=== PATIENT | female | born 1940 | race Caucasian/White ===

== ENCOUNTER 2016-07-11 07:19 | Inpatient (IN) | payer MEDICARE ==
[~2016-07-11 07:19] MED LIST: CLINDAMYCIN 600 MG PREMIX 50 ML IV SCH
[2016-08-29] MEDS ORDERED: CLINDAMYCIN 600 MG PREMIX 50 ML IV PRN (11:00)
[2016-08-29] MEDS ORDERED: LACTATED RINGERS 1,000 ML ONE ×3 (11:27→20:04)
[2016-08-29] MEDS ORDERED: IV START KIT ONE (11:28)
[2016-08-29] MEDS ORDERED: CLINDAMYCIN 600 MG PREMIX 50 ML IV ONE (11:36)
[2016-08-29] MEDS ORDERED: NERVE BLOCK PROCEDURAL TRAY 1 EACH ONE (13:10)
[2016-08-29] MEDS ORDERED: ROPIVACAINE 0.5% 30 ML VIAL ONE (13:10)
[2016-08-29] MEDS ORDERED: FENTANYL 100 MCG/2 ML VIAL ONE ×2 (13:15→20:29)
[2016-08-29] MEDS ORDERED: MIDAZOLAM HCL 1 MG/ML 2ML VIAL ONE (13:15)
[2016-08-29] MEDS ORDERED: EPINEPHRINE 1 MG/ML 1ML AMP ONE (13:29)
[2016-08-29] MEDS ORDERED: SODIUM CHLORIDE 0.9% 100 ML ONE (13:29)
[2016-08-29] MEDS ORDERED: METHYLENE BLUE 1% 1ML VIAL ONE (13:29)
[2016-08-29] MEDS ORDERED: HEPARIN SODIUM ONE (13:45)
[2016-08-29] MEDS ORDERED: PROPOFOL 20 ML IV ONE (14:51)
[2016-08-29] MEDS ORDERED: LIDOCAINE 2% (PRES FREE) 5 ML VIAL ONE (14:51)
[2016-08-29] MEDS ORDERED: ROCURONIUM BROMIDE 10 MG/ML DOSE IV ONE (14:51)
[2016-08-29] MEDS ORDERED: LUBRICANT EYE OINTMENT (PF) 10 APPLIC TUBE ONE (14:57)
[2016-08-29] MEDS ORDERED: ONDANSETRON 4 MG/2ML 2 ML VIAL IV PRN (16:25)
[2016-08-29] MEDS ORDERED: HYDROMORPHONE HCL 1 MG/ML SYRINGE IV PRN (16:25)
[2016-08-29] MEDS ORDERED: MEPERIDINE 25 MG/ML SYRINGE IV PRN (16:25)
[2016-08-29] MEDS ORDERED: PROMETHAZINE HCL 25 MG/ML VIAL IM PRN (16:25)
[2016-08-29] MEDS ORDERED: LABETALOL HCL 5 MG/ML 20ML VIAL IV PRN (16:25)
[2016-08-29] MEDS ORDERED: ATROPINE SULFATE 0.4 MG/1 ML VIAL IV PRN (16:25)
[2016-08-29] MEDS ORDERED: NALOXONE HCL 0.4 MG/ML VIAL IV PRN (16:25)
[2016-08-29] MEDS ORDERED: HYDRALAZINE HCL 20 MG/1 ML VIAL IV PRN (16:25)
[2016-08-29] MEDS ORDERED: FENTANYL 100 MCG/2 ML VIAL IV PRN (16:25)
[2016-08-29] MEDS ORDERED: LACTATED RINGERS 1,000 ML IV SCH (16:30)
[2016-08-29] MEDS ORDERED: METOPROLOL TARTRATE 1 MG/ML 5ML VIAL ONE (16:54)
--- NOTE | 2016-08-29 18:52 | RAD ---
Name: LEXI NICHOLE STONE Exam: C-arm fluoroscopy Comparison: Presurgical exam dated 04/17/2016 Clinical history: Preoperative exam Findings: 13.3 seconds of fluoroscopy was utilized for the procedure. 2 C-arm spot images are submitted. Both of views are AP views with normal projectional appearance of the left shoulder arthroplasty. Suspicious foreign body is not appreciated. Impression: Normal intraoperative appearance left shoulder arthroplasty. Please see operative report for further information.
--- NOTE | 2016-08-29 19:24 | PCMBPN ---
Brief Post Op Note: Date of Procedure: 08/29/16 Preoperative Diagnosis: 1. left shoulder osteoarthritis Postoperative Diagnosis: 1. left shoulder osteoarthritis, biceps tendonitis, and rotator cuff tear Procedure: left reverse shoulder arthroplasty and biceps tenodesis Surgeon: Camron Jones MD Assist: Nicanor JACKSON Anesthesia: GETA, left intrascalene nerve block and catheter for post-op pain control Findings: pt had an insufficient supra and subscapularis. Elected to placed a DJO RSA with a 32-4 glenosphere (scews 30 x 3 and 18mm), cemented size 6 humeral stem with a neutral liner Condition: extubated stable vitals, transferred to pacu Complications: None IV Fluids: 2700 mLs of LR Urine Output: 200 mLs Estimated Blood Loss: 200 mLs Tourniquet Time: [N/A] Specimens: [N/A] Implants: see above Drains: [N/A] PLAN: NWB on the LUE. SLing at all times. Clinda x 24 hours post-op. Oxycodone for pain control post-op.
[2016-08-29] MEDS ORDERED: ON-Q PUMP/ROPIVACAINE 0.2% 450 ML ONE (19:57)
[2016-08-29] MEDS: ON-Q PUMP/ROPIVACAINE 0.2% 450 ML in PREMIX BAG 1 EACH NB PRN (20:20)
--- NOTE | 2016-08-29 20:37 | RAD ---
Name: LEXI BRO Exam: Left facial Comparison: Multiple priors Clinical history: Postoperative exam Findings: 2 views of the left shoulder submitted. There are features of recent left glenohumeral arthroplasty. There is no fracture or dislocation. There is no suspicious foreign body. Visualized left lung is clear. Impression: Normal postop appearance left shoulder arthroplasty. Please see operative report for further information.
[2016-08-29] MEDS ORDERED: TRAMADOL HCL 50 MG TABLET PO PRN (20:54)
[2016-08-29] MEDS ORDERED: DIPHENHYDRAMINE HCL 50 MG/1 ML VIAL IV PRN (20:54)
[2016-08-29] MEDS ORDERED: MORPHINE SULFATE 4 MG/ML SYRINGE ONE (21:35)
[2016-08-29] MEDS: MORPHINE SULFATE 2 MG/ML SYRINGE IV PRN (21:37)
[2016-08-29] MEDS ORDERED: MORPHINE SULFATE 4 MG/ML SYRINGE IV PRN (21:41)
[2016-08-29] MEDS ORDERED: PUMP TUBING ONE (22:59)
[2016-08-29] MEDS: LACTATED RINGERS 1,000 ML IV SCH (23:05)
[2016-08-29] MEDS: DOCUSATE SODIUM 100 MG CAPSULE PO SCH (23:06)
[2016-08-29] MEDS ORDERED: INSULIN ASPART (DOSE) 100 UNITS/1 ML SUB-Q PRN (23:24)
[2016-08-29 23:25] VITALS: BMI 46.4
[2016-08-29] MEDS: CLINDAMYCIN 600 MG PREMIX 600 MG in Premix (D5W) 50 ml 1 EACH IV SCH (23:46)
[2016-08-30 05:46] LABS: HEMATOCRIT 35.9 % (37.0-47.0); HEMOGLOBIN 11.2 gm/l (12.0-16.0); MEAN CELL VOLUME 99.2 fl (81.0-99.0); MEAN CORPUSCULAR HEMOGLOBIN 30.9 pg (27.0-31.0); MEAN CORPUSCULAR HGB CONC 31.2 g/dl (33.0-37.0); RED CELL DISTRIBUTION WIDTH 14.8 % (11.5-14.5)
[2016-08-30 06:17] LABS: CALCIUM 8.2 mg/dL (8.6-10.3)
[2016-08-30] MEDS: LACTATED RINGERS 1,000 ML IV SCH ×2 (07:19→13:50)
[2016-08-30] MEDS: MORPHINE SULFATE 2 MG/ML SYRINGE IV PRN ×3 (07:19→15:43)
[2016-08-30] MEDS: LEVOTHYROXINE SODIUM 25 MCG TABLET PO SCH (07:19)
--- NOTE | 2016-08-30 07:26 | CONS ---
Za Stone DATE: 08/29/2016 ATTENDING PHYSICIAN: Dr. Camron Jones. PRIMARY CARE PHYSICIAN: Dr. Norman Wilson in [place], [place]. CONSULTING PHYSICIAN: Charbel Mckeon M.D. REASON FOR CONSULTATION: Medical management in the perioperative period. HISTORY OF PRESENT ILLNESS: Za is a 76-year-old female who earlier today underwent a left reverse total shoulder arthroplasty with Dr. Jones, please see Dr. Jones's note for details. The surgery was apparently successful and uncomplicated. I am seeing her in the postoperative period. She is still a bit somnolent in the postoperative period and most of the history is obtained from the chart. REVIEW OF SYSTEMS: She complains of no headache. No visual disturbance. No difficulty swallowing. No chest pain, shortness of breath, heart palpitations, recent fevers, or chills. PAST MEDICAL HISTORY: 1. Diabetes mellitus type 2. 2. Hypertension. 3. Reactive airway disease. 4. Hypothyroidism. 5. Gastroesophageal reflux disease. 6. Irritable bowel syndrome. 7. Hyperlipidemia. 8. Low back pain. 9. Anxiety and depression. 10. History of a deep venous thrombosis at some point in the distant past. She is now off all Coumadin and has undergone a hypercoagulable workup which was negative. PAST SURGICAL HISTORY: 1. Total abdominal hysterectomy secondary to bleeding. 2. Right total shoulder arthroplasty in the distant past. 3. Bilateral carpal tunnel surgery in the distant past. 4. Bilateral cataract surgery in the distant past. 5. Right total knee arthroplasty in 2011. ALLERGIES: PENICILLIN, LASIX, DOXYCYCLINE, GLIMEPIRIDE, METFORMIN, SULFA, AND TRAMADOL. HOME MEDICATIONS: 1. Omeprazole 20 mg by mouth daily. 2. Oxybutynin 5 mg by mouth daily. 3. Nortriptyline 20 mg by mouth at bedtime. 4. Metoprolol 50 mg by mouth at bedtime. 5. Lisinopril 20 mg by mouth daily. 6. Levothyroxine 25 mcg by mouth every morning. 7. Lantus 10 units subcutaneous daily. 8. Glucotrol 10 mg by mouth daily. 9. Gabapentin 900 mg by mouth three times a day. 10. Co-Q 10 100 mg by mouth daily. 11. Vitamin D3 5000 units by mouth daily. 12. Amlodipine 5 mg by mouth every evening. SOCIAL HISTORY: She is . She is a Hinduism. No alcohol, tobacco, or drug use. FAMILY HISTORY: Father had congestive heart failure. Mother had congestive heart failure and renal. She has a brother with cancer and a brother who had blood clots. OBJECTIVE: VITAL SIGNS: Temperature 98.0, pulse 95 and regular, blood pressure 122/69, respirations 16 and unlabored, O2 sat 98% on 2 liters. GENERAL: This is a obese elderly female. She is quite somnolent, but arousable. She is in no distress and has no complaints. HEENT: Benign. NECK: Supple. No jugular venous distention. LUNGS: With distant sounds, but no wheezes, rales, or rhonchi. HEART: Regular rhythm. ABDOMEN: Soft, nontender, no rebound or guarding. EXTREMITIES: SCD's and JUAN JOSE hose are in place. Her surgical dressings on the left shoulder are clean, dry, and intact. She is neurovascularly intact. PREOPERATIVE LABS: Performed 08/25/2016 with a CBC with a white count of 6.8, hemoglobin 14.2, hematocrit 44.8, platelets of 181. Chemistry panel, sodium 135, potassium 4.2, chloride 101, carbon dioxide 28, BUN 14, creatinine 0.8, glucose of 148. INR 0.95. Nasal swab negative for methicillin resistant Staphylococcus aureus and negative for methicillin sensitive Staphylococcus aureus. ASSESSMENT: 1. Postoperative day zero status post left reverse total shoulder arthroplasty. Postoperative care is per Dr. Jones. She is doing well. 2. History of deep venous thrombosis. She has undergone hypercoagulable workup and has completed her course of Coumadin. At this point, she will be on aspirin and prophylactic doses Lovenox per orthopedic protocol. Will follow closely. 3. Diabetes. Will hold her oral medications and place her on basal bolus while here. Will resume usual medications upon discharge. 4. Hypertension. Parameters have been written on her usual medications. 5. Reactive airway disease, stable. Continue with usual treatment. 6. Gastroesophageal reflux disease. Continue with proton pump inhibitor therapy. Protonix substituted for her usual omeprazole. Further care as dictated by clinic course. JOB: [id number]
[2016-08-30] MEDS: CLINDAMYCIN 600 MG PREMIX 600 MG in Premix (D5W) 50 ml 1 EACH IV SCH (07:55)
[2016-08-30] MEDS: OXYCODONE/ACETAMINOPHEN 5/325 MG TABLET PO PRN ×2 (07:56→12:45)
[2016-08-30] MEDS: ASPIRIN (ENTERIC COATED) 325 MG TABLET.EC PO SCH (08:04)
[2016-08-30] MEDS: DOCUSATE SODIUM 100 MG CAPSULE PO SCH ×2 (08:31→21:33)
--- NOTE | 2016-08-30 08:55 | PDOC43 ---
- Subjective Subjective: Denies Pain Tolerable (Pt is having a lot of pain overnight.), Denies Nausea, Denies Vomiting - Objective Vital Signs Temperature 97.9 F 08/30/16 07:10 Pulse Rate 80 08/30/16 07:10 Respiratory Rate 18 08/30/16 07:30 Blood Pressure 126/64 08/30/16 07:10 O2 Saturation by Pulse Oximetry 97 08/30/16 07:10 Oxygen Delivery Method Nasal Cannula Oxygen Flow Rate 2 Laboratory 08/30/16 05:15 08/30/16 05:15 08/30/16 08/30/16 08/29/16 07:23 05:15 19:54 RBC 3.62 L MCV 99.2 H MCHC 31.2 L RDW 14.8 H Anion Gap 5 L Estimated GFR 82 H POC Capillary Glucose 129 H 188 H Calcium 8.2 L 08/29/16 11:26 RBC MCV MCHC RDW Anion Gap Estimated GFR POC Capillary Glucose 124 H Calcium Active Medication Orders Category Date Time Status Acetaminophen [Tylenol] Med 08/29/16 20:54 Active 500 - 1,000 mg PO Q6H PRN Amlodipine Besylate [Norvasc] Med 08/30/16 17:00 Active 5 mg PO 1700 Aspirin (Enteric Coated) [Ecotrin] Med 08/30/16 09:00 Active 325 mg PO DAILY Diphenhydramine HCl [Benadryl] Med 08/29/16 20:54 Active 25 - 50 mg IV Q6H PRN Docusate Sodium [Colace] Med 08/29/16 21:00 Active 100 mg PO BID Enoxaparin Sodium [Lovenox] Med 08/30/16 17:26 Active 40 mg SUB-Q Q24H Insulin Aspart (Dose) [Novolog (Dose)] Med 08/29/16 23:24 Active See Protocol SUB-Q WM/BEDTIME PRN Insulin Glargine (Dose) [Lantus (Dose)] Med 08/30/16 19:00 Active 10 units SUB-Q 1900 Lactated Ringers 1,000 ml Med 08/29/16 20:54 Active IV 125 mls/hr Levothyroxine Sodium [Levothroid] Med 08/30/16 07:30 Active 25 mcg PO QAMAC Lisinopril [Prinivil] Med 08/30/16 17:00 Active 20 mg PO 1700 Metoprolol Succinate (Xl) [Toprol Xl] Med 08/30/16 17:00 Active 50 mg PO 1700 Morphine Sulfate Med 08/29/16 20:54 Active 2 - 4 mg IV Q4H PRN Morphine Sulfate Med 08/29/16 21:41 Active 2 - 4 mg IV Q4H PRN Nortriptyline HCl [Pamelor] Med 08/30/16 20:00 Active 20 mg PO 2000 On-Q Pump/Ropivacaine 0.2% 450 ml Med 08/29/16 16:25 Active Premix Bag [Premix Fluid] 1 each NB Q50H Oxycodone HCl/Acetaminophen [Percocet 5/325] Med 08/29/16 20:54 Active 1 - 2 tab PO Q4H PRN Sodium Chloride 0.9% Flush [Normal Saline 10ml Flush] Med 08/29/16 20:54 Active 10 - 50 ml IV PRN PRN Sodium Chloride 0.9% Flush [Normal Saline 10ml Flush] Med 08/30/16 01:00 Active 10 ml IV Q8HR Tramadol HCl [Ultram] Med 08/29/16 20:54 Hold 50 mg PO TID PRN Intake and Output 08/28/16 08/29/16 08/30/16 23:59 23:59 23:59 Intake Total 4520 Output Total 1325 Balance 3195 General: Afebrile - Left Upper Extremity Incision: Dressing Clean/Dry/Intact Motor: Extensor Pollicis Longus: 4/5, Finger Flexors: 4/5, Finger Extensors: 4/5 , Wrist Flexors: 4/5, Wrist Extensors: 4/5, Intrinsics: 4/5 Gross Sensation to Light Touch: Present: Median Nerve, Ulnar Nerve, Radial Nerve Capillary Refill: < 3 Seconds (Pt did have her sling on but the patient is in neutral instead of the standard IR position. I told the patient that I have concerns about her stability if her sling is not on properly) - Problems (1) Status post reverse total shoulder replacement Status: Acute - Disposition POD#1 s/p left RSA and biceps tenodesis NWB on the LUE. Sling at all times. Pt to work with PT and OT today. Clinda x 24 hours post-op. Lovenox 40mg sq q day for 2 weeks after surgery then ASA Oxycodone and morphine for pain control
--- NOTE | 2016-08-30 12:14 | PDOC43 ---
- Subjective Chief Complaint: S/P L RSA Slept well. No specific c/o's. Subjective: Reports Pain Tolerable, Reports Tolerating Diet Well, Reports Adequate Oral Intake, Reports Urinating Without Difficulty, Denies Shortness of Breath, Denies Cough, Denies Chest Pain, Denies Abdominal Pain, Denies Nausea, Denies Vomiting, Denies Fever, Denies Chills - Objective Vital Signs Temperature 97.9 F 08/30/16 07:10 Pulse Rate 80 08/30/16 07:10 Respiratory Rate 18 08/30/16 07:30 Blood Pressure 126/64 08/30/16 07:10 O2 Saturation by Pulse Oximetry 97 08/30/16 07:10 Oxygen Delivery Method Nasal Cannula Oxygen Flow Rate 2 Intake and Output 08/29/16 08/30/16 08/31/16 06:59 06:59 06:59 Intake Total 4520 Output Total 1325 Balance 3195 General: Alert, Oriented x3, Cooperative, No Acute Distress HEENT: Atraumatic, PERRLA Lungs: Clear to Auscultation Bilaterally Cardiovascular: Regular Rate and Rhythm Abdomen: Soft, Normal Bowel Sounds, Non-Distended, No Tenderness Extremities: Normal Pulses, No Edema Laboratory 08/30/16 05:15 08/30/16 05:15 Current Medications: Current meds reviewed in EMR. - Problems: Assessment/Plan (1) Status post reverse total shoulder replacement Qualifiers: Laterality: left Qualifier Code: (Z96.612) Presence of left artificial shoulder joint Status: AcuteAssessment/Plan: Doing well. Post-op as per ortho. DVT proph with lovenox x 2 weeks then ASA. (2) H/O deep venous thrombosis Status: ChronicAssessment/Plan: Single episode several years ago with negative recent hypercoagulable w/u. Off coumadin x several weeks. DVT proph with Lovenox/ASA as above. (3) DM2 (diabetes mellitus, type 2) Qualifiers: Diabetes mellitus complication status: with unspecified complications Status: ChronicAssessment/Plan: Stable. Con't basal/bolus and resume usual regimen upon d/c. (4) HTN (hypertension) Qualifiers: Hypertension type: essential hypertension Qualifier Code: (I10) Essential (primary) hypertension Status: ChronicAssessment/Plan: Stable. Parameters written for usual meds. (5) Asthma Qualifiers: Asthma severity: unspecified severity Status: ChronicAssessment/Plan: Stable at baseline. (6) GERD (gastroesophageal reflux disease) Qualifiers: Esophagitis presence: esophagitis presence not specified Qualifier Code : (K21.9) Gastro-esophageal reflux disease without esophagitis Status: ChronicAssessment/Plan: Substitute protonix for usual omeprazole. (7) Hypothyroidism Qualifiers: Hypothyroidism type: unspecified Qualifier Code: (E03.9) Hypothyroidism , unspecified Status: ChronicAssessment/Plan: Con't usual meds. (8) Morbid obesity with BMI of 45.0-49.9, adult Status: ChronicAssessment/Plan: Complicating all other dx/tx. VTE Prophylaxis: Lovenox x 2 weeks then ASA.
[2016-08-30] MEDS ORDERED: HYDROMORPHONE HCL 2 MG/ML SYRINGE IV ONE (16:18)
[2016-08-30] MEDS: AMLODIPINE BESYLATE 5 MG TABLET PO SCH (16:30)
[2016-08-30] MEDS: LISINOPRIL 20 MG TABLET PO SCH (16:30)
[2016-08-30] MEDS: METOPROLOL SUCCINATE (XL) 50 MG TAB.PRT.SR PO SCH (16:30)
[2016-08-30] MEDS: ENOXAPARIN SODIUM 40 MG/0.4 ML SYRINGE SUB-Q SCH (16:31)
[2016-08-30] MEDS ORDERED: HYDROMORPHONE HCL 0.5 MG/0.5 ML SYRINGE IV PRN ×2 (16:39→17:15)
[2016-08-30] MEDS ORDERED: INSULIN GLARGINE (DOSE) 100 UNITS/ML UNIT SUB-Q SCH (17:00)
[2016-08-30] MEDS ORDERED: HYDROMORPHONE HCL 1 MG/ML SYRINGE IV PRN (17:16)
[2016-08-30] MEDS ORDERED: [UNRECOGNIZED DRUG - OTHER] SUB-Q SCH (19:00)
[2016-08-30] MEDS ORDERED: INSULIN GLARGINE HUM REC ANLOG SUB-Q SCH (19:00)
[2016-08-30] MEDS: INSULIN GLARGINE (DOSE) 100 UNITS/ML UNIT SUB-Q SCH (19:25)
[2016-08-30] MEDS: NORTRIPTYLINE HCL 10 MG CAPSULE PO SCH (21:33)
[2016-08-31] MEDS: LACTATED RINGERS 1,000 ML IV SCH ×2 (02:13→12:06)
[2016-08-31 06:15] LABS: HEMATOCRIT 38.1 % (37.0-47.0); MEAN CELL VOLUME 96.9 fl (81.0-99.0); MEAN CORPUSCULAR HEMOGLOBIN 30.5 pg (27.0-31.0); MEAN CORPUSCULAR HGB CONC 31.5 g/dl (33.0-37.0); RED CELL DISTRIBUTION WIDTH 14.4 % (11.5-14.5)
[2016-08-31] MEDS: ACETAMINOPHEN 500 MG TABLET PO PRN (07:43)
[2016-08-31] MEDS ORDERED: SODIUM CHLORIDE 0.9% FLUSH 10 ML ONE ×2 (08:06→09:02)
[2016-08-31] MEDS ORDERED: IV START KIT ONE ×2 (08:06→09:02)
[2016-08-31] MEDS: LEVOTHYROXINE SODIUM 25 MCG TABLET PO SCH (08:10)
[2016-08-31] MEDS: ON-Q PUMP/ROPIVACAINE 0.2% 450 ML in PREMIX BAG 1 EACH NB PRN (08:11)
--- NOTE | 2016-08-31 08:35 | RAD ---
PORTABLE CHEST RADIOGRAPH HISTORY: Acute mental status change. Frontal portable chest radiograph dated 08/31/2016. COMPARISON: 07/03/2016. FINDINGS: LUNG VOLUMES: Diminished. FOCAL AIRSPACE OPACITY: No gross airspace consolidation. PLEURAL EFFUSION: None. CARDIOMEDIASTINAL SILHOUETTE: Tortuous aorta, noted previously. Ectatic aortic arch. PNEUMOTHORAX: None identified. OSSEOUS STRUCTURES: Status post right shoulder arthroplasty, with interval reverse left shoulder arthroplasty. IMPRESSION: Low lung volumes with no acute cardiopulmonary process identified. Tortuous, ectatic aorta. Evidence of bilateral shoulder arthroplasty.
--- NOTE | 2016-08-31 09:46 | OP ---
Za BRO : 1940 [id number] DATE OF PROCEDURE: August 29, 2016 PREOPERATIVE DIAGNOSES: Left shoulder osteoarthritis, biceps tendinitis. POSTOPERATIVE DIAGNOSES: Left shoulder osteoarthritis, biceps tendinitis and rotator cuff tear. PROCEDURE: LEFT REVERSE SHOULDER ARTHROPLASTY AND BICEPS TENODESIS. SURGEON: Camron Jones M.D. ASSOCIATE STORE DIRECTOR: Janeth Vick ANESTHESIA: General along with a left interscalene nerve block and catheter for postoperative pain control. FINDINGS: The patient had an insufficient supraspinatus and subscapularis. I was concerned about the patient possibly dislocating postoperatively because of her poor subscapularis with an anatomic TSA and elected to place a DJO RSA with a 32 -4 glenosphere, three 30 mm screws were placed along with one 18 mm and a cemented size 6 humeral stem was placed with a neutral liner. CONDITION: The patient was extubated with stable vital signs and transferred to the PACU. COMPLICATIONS: In the recovery room the patient's initial postoperative x-ray appeared to show some subluxation. I manipulated her arm and repeat xrays were obtained showing reduction of the shoulder. My plan will be to continue to monitor her closely prior to discharge to make sure her shoulder stays reduced. No other complications were appreciated during the sivan-operative period. INTRAVENOUS FLUIDS: 2700 mL of Lactate Ringer's. URINE OUTPUT: 200 mL ESTIMATED BLOOD LOSS: 200 mL SPECIMENS: N/A TOURNIQUET TIME: N/A IMPLANTS: See above. DRAINS: N/A PLAN: The patient will be nonweightbearing on the left upper extremity in a sling at all times. Clindamycin for 24 hours postoperatively. Oxycodone for pain control along with intravenous morphine. INDICATIONS: The patient is a 76-year-old female who has signs and symptoms consistent with severe osteoarthritis. Prior to surgery she had a CT arthrogram which demonstrated a thin but intact rotator cuff as well as severe osteoarthritis. I spoke to the patient regarding the surgery as well as the risks and benefits of this procedure. I told her that there is always the risk of instability, persistent pain, infection, anesthesia risks as well as injury to surrounding nerves and blood vessels. We spoke about the risks of sivan-surgical complications such as a DVT, confusion, pneumonia, stroke, [place] and even . After a lengthy description regarding these risks and others the patient decided to proceed with surgery. PROCEDURE DESCRIPTION: The patient was seen in the preoperative area where I reviewed with the patient regarding the procedure. They agreed that the left side was the correct side and that this matched the consent form. I placed my initials and the word "yes" on the left arm. After my initials were on the left arm and I updated the H&P, signing it, the patient was seen by the anesthesia team. They reviewed with her the risks and benefits of a nerve block and an intra-scalene nerve catheter was placed under ultrasound guidance. At this point the patient was brought from the preoperative area to the operating suite where the patient was placed on the OR bed and was placed asleep without difficulty. The patient was then intubated without difficulty or complications. The patient was then placed in the beach chair position. The hips were flexed to 45 degrees and the knees were flexed to 45 degrees. Plastic goggles were used to cover the eyes and the head gear was placed securing the head to the bed. The patient was positioned so that a safety belt was secured and the patient had a black knee bump. The patient had bilateral SCDs on each foot for intra-operative DVT prophylaxis. The patient's head was positioned in a neutral position. At this point the bed was turned 45 degrees. The C-arm was brought in and I confirmed that we could obtain a Grashey view. After this was checked, a Betadine scrub, paint and chlorhexidine prep was used to prep the left upper extremity. At this point a final time-out was performed. We confirmed that the patient's correct images were brought up on the view box. This included xrays of the left shoulder and a CT scan demonstrating the version of the glenoid and bony landmarks. In this final time-out we confirmed that the left side was the correct side that our procedure was a left reverse shoulder arthroplasty with a long head of the biceps tendoesis and antibiotics. (Clindamycin 600 mg due to her PCN allergy). Almost ready to start the surgery, the incision was drawn with a sterile marker. I measured a 10cm line starting just proximal and medial to the coracoid process extending to the mid-shaft of the humerus in the delto-pectoral interval. An Ioban was placed above and below the axilla isolating it from the operative field. A #10 blade was now used to incise the skin. Clarks cautery was used to gain good hemostasis through the subcutaneous fat and 2 Gelpi retractors were placed. An [place] was placed proximally. A Schnidt was used to dissect to identify the cephalic vein. It was brought medially as the deltoid laterally was freed up. A Garcia deltoid retractor was then placed. Anterior bursal tissue was removed exposing the long head of the biceps. It was then tenodesed to the upper border of the pec tendon by its insertion on the humerus with a #2 fiberwire. At this point the rotator interval was opened with Clarks cautery. A small, sharp Kendall was placed into the joint and the anterior capsule was then exposed. A tag suture was then placed in the superior border of the capsule and the remaining portion of the subscapularis. I then used my finger to feel the anterior border of the subscapularis palpating the axillary nerve as well as the axillary artery more medial and inferior. Once this was identified with my traction suture on the upper border of the anterior capsule, this was removed from the lesser tuberosity exposing the humeral head. This was performed with the arm and elbow in adduction and with gentle external rotation which allowed for dislocation of the humeral head. Once this was dislocated a 30 degree guide was used to guide my cut of the humeral head setting the retroversion to match the glenoid. Once this was performed blunt Hohmann retractors were used to protect the conjoined tendon. By inspecting the rotator cuff I thought that the patient had a thin subscapularis as well as an anterior supraspinatus. Both tendons were thin and I had concern that they may not function appropriately with an anatomic TSA. For this reason I thought that it would be best to move to do the reverse shoulder which may be just one operation for the patient. I then used a rongeur to make room for the canal finder. I reamed and elected to place a 6 mm broach. I used a small metaphyseal reamer was used to ream out inferior border of the metaphysis. Due to the patient's poor bone quality I made the determination that a cemented implant would be better. I then turned my attention to the glenoid. Now with the humerus prepared, I turned my attention to the glenoid. The 6mm broach was left in place in the humerus and the broach handle was removed. I then palpated the axillary nerve one more time anterior to my subscapularis and capsule. I then placed a blunt posterior Alvarado retractor posteriorly, a small sharp Hohmann retractor superiorly, and a Cobra anteriorly exposing the glenoid. The anterior labrum was removed and the glenoid was exposed. Once this was performed I used a 2.5mm drill bit to drill my pilot safety inspector hole into the glenoid. I then measured this. This measured 30mm. At this point I took the drill out and placed in the tap into the same hole making sure not to lose my path. I then used the base plate reamer followed by the small reamer until I got some good bleeding bone inferiorly. I then placed the 30mm base plate with a center 6.5mm screw and base plate without difficulty getting a good bite. I then placed four 5mm locking screws at 12 o'clock, 3 o'clock, 6 o'clock and 9 o'clock. Once these 5.0mm screws were placed I used the base plate reamer to clean around the base plate itself and then placed the glenosphere. The engaged glenosphere taper was checked and the glenosphere screw was placed with the torque screwdriver. With the glenosphere now implanted, I then returned back to the humerus re-dislocating the humeral head placing the Garcia retractor under the deltoid. The medium metaphyseal reamer was then used. I then placed a standard socket with a 32mm poly and re-reduced the humerus onto the glenosphere. The prosthesis had good tension and good ROM. The implant position was check on C-arm and confirmed the ROM in external rotation, forward flexion and abduction. The humerus was then re-dislocated, I asked for the final implants to be opened and I placed an 8mm cement plug. We then prepared for cementing in the humerus with cement dyed with methylene blue and antibiotics. I assembled the implant together on the back table myself. Once the cement was prepared I placed a sponge into the canal and placed 4 fiber tape sutures through drill holes in the lesser tuberosity. These fibertapes would be placed around the implant and then through the subscapularis for our repair at the end. Once the cement was prepared it was hand packed into the canal itself. The final implant was impacted taking care not to let any extra cement extravasate and then relocated the humerus onto the glenosphere. I then used a free needle to pass my fiber tapes around the humeral stem repairing the subscapularis and capsule back to the anterior aspect of the humerus. This was done with the arm in 30 degrees of external rotation. Once this was performed I took the arm through a [id number]. I checked for good hemostasis and then irrigated the wound once again. The deltopectoral interval was closed with non-absorbable Ethibond sutures to doni the interval for any possible future revision surgeries. This was followed by 0 Vicryl, interrupted 2-0 Vicryl followed by a running Monocryl suture. A DSD was applied. The team confirmed that all needle and sponge counts were correct. The patient was placed in a shoulder immobilizer and awoken without difficulty and transferred to the recovery room. In the recovery room, the patient neurovascularly was grossly intact. The patient was able to fire the EPL, FF, FE, WF, WE and intrinsics 4/5 strength and had gross sensation to light touch in the distribution median, ulnar, radial and axillary nerves prior to placing a left interscalene catheter. In the postoperative area I obtained an initial PACU x-ray. I did see signs of subluxation. I manipulated shoulder and I felt a click. I am concerned that the patient may have some subluxation. We will continue to monitor this closely in the perioperative period to make sure that she has no signs of instability. The patient will be discharged to the floor. We will give antibiotics for the next 24 hours. For DVT prophylaxis she will be on SCD's and early ambulation. Job [id number] CC: Carleen Perry
[2016-08-31] MEDS ORDERED: IOPAMIDOL 370 (76%) 100 ML VIAL IV ONE (09:50)
[2016-08-31] MEDS: DOCUSATE SODIUM 100 MG CAPSULE PO SCH ×3 (10:19→21:17)
[2016-08-31] MEDS: ASPIRIN (ENTERIC COATED) 325 MG TABLET.EC PO SCH ×2 (10:19→10:31)
[2016-08-31] MEDS: PANTOPRAZOLE 40 MG TABLET DR PO SCH ×2 (10:19→10:32)
--- NOTE | 2016-08-31 10:19 | CT ---
CHEST CTA HISTORY: Hypoxia and tachycardia status post shoulder surgery.. TECHNIQUE: Following the administration of 80 mL Isovue-370 intravenous contrast, contiguous axial images were acquired from the thoracic inlet to the diaphragmatic hiatus for CT pulmonary angiography. Three-dimensional imaging was not performed. FINDINGS: PULMONARY ARTERIAL TREE: Evaluation of subsegmental vessels Limited by motion artifact. To these limits, no obvious embolus of the main pulmonary arteries or segmental vessels. THORACIC AORTA: Normal caliber. No evidence of dissection. LUNGS: Small left pleural effusion and atelectatic change. A minor focus of pneumonia/aspiration at the left lower lobe is not excluded. Diminished lung volumes. ANGELIA AND MEDIASTINUM: No abnormally enlarged lymph nodes. AXILLAE: No grossly enlarged lymph nodes. UPPER ABDOMEN:No gross mass effect. OSSEOUS STRUCTURES: Evidence of bilateral shoulder arthroplasty. IMPRESSION: Low lung volumes. Small left pleural effusion with minor airspace abnormality of the left lower lobe. This may simply be atelectatic in nature, but a small focus of pneumonia and aspiration is in the differential. While limited by motion artifact noted dominant filling defect to suggest proximal pulmonary embolus. Evidence of bilateral shoulder arthroplasty. Findings discussed with Dr. Mckeon of the hospitalist clinical service on 08/31/2016 at 1015 hours.
[2016-08-31] MEDS ORDERED: IBUPROFEN 200 MG TABLET PO PRN (10:46)
[2016-08-31] MEDS: TRAMADOL HCL 50 MG TABLET PO PRN (11:09)
--- NOTE | 2016-08-31 12:10 | PDOC43 ---
- Subjective Chief Complaint: S/P L RSA Patient had decreased LOC, hypoxia and tachycardia last night after 2mg dilaudid was given. now with persistent tachycardia and hypoxia. Subjective: Reports Other (Pain management has been a challenge) - Objective Vital Signs Temperature 99.1 F 08/31/16 07:14 Pulse Rate 125 08/31/16 07:14 Respiratory Rate 24 08/31/16 08:00 Blood Pressure 149/82 08/31/16 07:14 O2 Saturation by Pulse Oximetry 82 08/31/16 09:35 Oxygen Delivery Method Room Air Oxygen Flow Rate 0 Intake and Output 08/30/16 08/31/16 09/01/16 06:59 06:59 06:59 Intake Total 4520 3532 Output Total 1325 3200 Balance 3195 332 Laboratory 08/31/16 05:30 08/31/16 05:30 08/31/16 08/31/16 08/31/16 10:58 07:42 05:30 RBC 3.93 L MCHC 31.5 L BUN 6 L Estimated GFR 82 H POC Capillary Glucose 179 H 162 H 08/30/16 08/30/16 21:04 17:09 RBC MCHC BUN Estimated GFR POC Capillary Glucose 166 H 131 H Current Medications: Current meds reviewed in EMR. VTE Prophylaxis: Lovenox x 2 weeks then ASA.
--- NOTE | 2016-08-31 12:15 | PDOC43 ---
- Subjective Chief Complaint: S/P L RSA Subjective: Reports Other (see previouse incomplete note from today) - Objective Vital Signs Temperature 99.1 F 08/31/16 07:14 Pulse Rate 125 08/31/16 07:14 Respiratory Rate 24 08/31/16 08:00 Blood Pressure 149/82 08/31/16 07:14 O2 Saturation by Pulse Oximetry 82 08/31/16 09:35 Oxygen Delivery Method Room Air Oxygen Flow Rate 0 Intake and Output 08/30/16 08/31/16 09/01/16 06:59 06:59 06:59 Intake Total 4520 3532 Output Total 1325 3200 Balance 3195 332 General: Other (somnolent but directible), No Acute Distress HEENT: Mucous membr. moist/pink Lungs: Diminished at Bases Cardiovascular: Other (reg tachy) Abdomen: Soft, Normal Bowel Sounds, Non-Distended, No Tenderness Extremities: No Edema Wound: Dressing Clean/Dry/Intact Laboratory 08/31/16 05:30 08/31/16 05:30 08/31/16 08/31/16 08/31/16 10:58 07:42 05:30 RBC 3.93 L MCHC 31.5 L BUN 6 L Estimated GFR 82 H POC Capillary Glucose 179 H 162 H 08/30/16 08/30/16 21:04 17:09 RBC MCHC BUN Estimated GFR POC Capillary Glucose 166 H 131 H Current Medications: Current meds reviewed in EMR. - Problems: Assessment/Plan (1) Hypoxia Status: AcuteAssessment/Plan: with tachycardia due to dilaudid and atalectesis as noted on CTA-if febrile or not improving consider aspiration pneumonitis, avoid narcotics except for oxycodoe, toradol and /or ibuprofen, tramadol added, stopped dilaudid (2) Status post reverse total shoulder replacement Qualifiers: Laterality: left Qualifier Code: (Z96.612) Presence of left artificial shoulder joint Status: AcuteAssessment/Plan: Poor progress. Post-op as per ortho. DVT proph with lovenox x 2 weeks then ASA. (3) DM2 (diabetes mellitus, type 2) Qualifiers: Diabetes mellitus complication status: with unspecified complications Diabetes mellitus jail insulin use: with dedicated intermodal truck driver use Qualifier Code: (E11.8) Type 2 diabetes mellitus with unspecified complications Status: ChronicAssessment/Plan: Stable. Con't basal/bolus and resume usual regimen upon d/c. (4) H/O deep venous thrombosis Status: ChronicAssessment/Plan: No PE on CTA Single episode several years ago with negative recent hypercoagulable w/u. Off coumadin x several weeks. DVT proph with Lovenox/ASA as above. (5) HTN (hypertension) Qualifiers: Hypertension type: essential hypertension Qualifier Code: (I10) Essential (primary) hypertension Status: ChronicAssessment/Plan: Stable. Parameters written for usual meds. (6) Asthma Qualifiers: Asthma severity: unspecified severity Status: ChronicAssessment/Plan: Stable at baseline. (7) GERD (gastroesophageal reflux disease) Qualifiers: Esophagitis presence: esophagitis presence not specified Qualifier Code : (K21.9) Gastro-esophageal reflux disease without esophagitis Status: ChronicAssessment/Plan: Substitute protonix for usual omeprazole. (8) Hypothyroidism Qualifiers: Hypothyroidism type: unspecified Qualifier Code: (E03.9) Hypothyroidism , unspecified Status: ChronicAssessment/Plan: Con't usual meds. (9) Morbid obesity with BMI of 45.0-49.9, adult Status: ChronicAssessment/Plan: Complicating all other dx/tx. VTE Prophylaxis: Lovenox x 2 weeks then ASA. Disposition: Home in 1-2 days
[2016-08-31] MEDS: SODIUM CHLOR 0.45%/KCL 20 MEQ 1,000 ML IV SCH ×2 (12:22→21:17)
[2016-08-31] MEDS: POTASSIUM CHLORIDE 10 MEQ TAB.SR PO SCH ×2 (12:28→21:16)
[2016-08-31] MEDS: KETOROLAC TROMETHAMINE 15 MG/ML VIAL IV PRN ×2 (13:01→19:43)
[2016-08-31] MEDS ORDERED: HYDROMORPHONE HCL 1 MG/ML SYRINGE ONE (16:59)
[2016-08-31] MEDS: HYDROMORPHONE HCL 1 MG/ML SYRINGE IV PRN ×2 (17:01→19:50)
[2016-08-31] MEDS: METOPROLOL SUCCINATE (XL) 50 MG TAB.PRT.SR PO SCH (17:47)
[2016-08-31] MEDS: LISINOPRIL 20 MG TABLET PO SCH (17:47)
[2016-08-31] MEDS: AMLODIPINE BESYLATE 5 MG TABLET PO SCH (17:48)
[2016-08-31] MEDS: GLIPIZIDE 10 MG TABLET PO SCH (17:48)
[2016-08-31] MEDS: ENOXAPARIN SODIUM 40 MG/0.4 ML SYRINGE SUB-Q SCH (17:48)
[2016-08-31 18:45] LABS: PH,URINE 6.5 (5.0-8.0); SPECIFIC GRAVITY 1.015 (1.001-1.030); URINE BILIRUBIN NEGATIVE (NEGATIVE); URINE BLOOD 4+ (NEGATIVE); URINE GLUCOSE (UA) 2+ (NEGATIVE); URINE LEUKOCYTE ESTERASE 1+ (NEGATIVE); URINE NITRITE NEGATIVE (NEGATIVE); URINE PROTEIN 2+ (NEGATIVE); URINE UROBILINOGEN NORMAL (0-1 mg/dl)
[2016-08-31 18:47] LABS: URINE APPEARANCE CLEAR; URINE COLOR YELLOW
[2016-08-31 19:11] LABS: URINE RBC 20-30 /hpf; URINE WBC 0-2 /hpf
[2016-08-31 19:12] LABS: URINE BACTERIA 1+; URINE EPITHELIAL CELLS 0 /hpf
--- NOTE | 2016-08-31 19:32 | PDOC43 ---
- Subjective Subjective: Reports Pain Tolerable, Denies Nausea, Denies Vomiting - Objective Vital Signs Temperature 98.8 F 08/31/16 17:09 Pulse Rate 110 08/31/16 17:09 Respiratory Rate 20 08/31/16 18:59 Blood Pressure 143/93 08/31/16 17:09 O2 Saturation by Pulse Oximetry 81 08/31/16 17:09 Oxygen Delivery Method Room Air Oxygen Flow Rate 0 Laboratory 08/31/16 05:30 08/31/16 05:30 08/31/16 08/31/16 08/31/16 17:30 10:58 07:42 RBC MCHC BUN Estimated GFR POC Capillary Glucose 149 H 179 H 162 H 08/31/16 08/30/16 05:30 21:04 RBC 3.93 L MCHC 31.5 L BUN 6 L Estimated GFR 82 H POC Capillary Glucose 166 H Active Medication Orders Category Date Time Status Acetaminophen [Tylenol] Med 08/29/16 20:54 Active 500 - 1,000 mg PO Q6H PRN Amlodipine Besylate [Norvasc] Med 08/30/16 17:00 Active 5 mg PO 1700 Aspirin (Enteric Coated) [Ecotrin] Med 08/30/16 09:00 Active 325 mg PO DAILY Docusate Sodium [Colace] Med 08/29/16 21:00 Active 100 mg PO BID Enoxaparin Sodium [Lovenox] Med 08/30/16 17:26 Active 40 mg SUB-Q Q24H Glipizide [Glucotrol] Med 08/31/16 17:00 Active 10 mg PO DAILY@1700 Hydromorphone HCl [Dilaudid] Med 08/31/16 17:00 Active 1 mg IV Q2H PRN Ibuprofen [Advil] Med 08/31/16 10:46 Active 400 mg PO QID PRN Insulin Aspart (Dose) [Novolog (Dose)] Med 08/29/16 23:24 Active See Protocol SUB-Q WM/BEDTIME PRN Insulin Glargine (Dose) [Lantus (Dose)] Med 08/30/16 19:00 Active 10 units SUB-Q 1900 Ketorolac Tromethamine [Toradol] Med 08/31/16 12:07 Active 15 mg IV Q6H PRN Levothyroxine Sodium [Levothroid] Med 08/30/16 07:30 Active 25 mcg PO QAMAC Lisinopril [Prinivil] Med 08/30/16 17:00 Active 20 mg PO 1700 Metoprolol Succinate (Xl) [Toprol Xl] Med 08/30/16 17:00 Active 50 mg PO 1700 Nortriptyline HCl [Pamelor] Med 08/30/16 20:00 Active 20 mg PO 2000 On-Q Pump/Ropivacaine 0.2% 450 ml Med 08/29/16 16:25 Active Premix Bag [Premix Fluid] 1 each NB Q50H Oxycodone HCl/Acetaminophen [Percocet 5/325] Med 08/29/16 20:54 Active 1 - 2 tab PO Q4H PRN Pantoprazole Sodium [Protonix] Med 08/31/16 09:00 Active 40 mg PO DAILY Potassium Chloride [K-Dur] Med 08/31/16 11:00 Active 10 meq PO BID Sodium Chlor 0.45%/KCl 20 Meq 1,000 ml Med 08/31/16 12:06 Active IV 100 mls/hr Sodium Chloride 0.9% Flush [Normal Saline 10ml Flush] Med 08/29/16 20:54 Active 10 - 50 ml IV PRN PRN Sodium Chloride 0.9% Flush [Normal Saline 10ml Flush] Med 08/30/16 01:00 Active 10 ml IV Q8HR Tramadol HCl [Ultram] Med 08/31/16 10:43 Active 50 - 100 mg PO Q4H PRN Intake and Output 08/29/16 08/30/16 08/31/16 23:59 23:59 23:59 Intake Total 6483 1569 Output Total 2225 3700 Balance 4258 -2131 General: Mild Distress, Other (Some mental confusion. Calm, alert.) Lungs: Normal Air Movement Abdomen: No Tenderness Genitourinary: Indwelling Urinary Cath Skin: Dry Neurological: Alert Psych/Mental Status: Other (affect is somewhat flat this morning.) - Left Upper Extremity Incision: Dressing Clean/Dry/Intact Motor: Extensor Pollicis Longus: 5/5, Finger Flexors: 5/5, Finger Extensors: 5/5 , Wrist Flexors: 5/5, Wrist Extensors: 5/5, Intrinsics: 5/5 Gross Sensation to Light Touch: Present: Median Nerve, Ulnar Nerve, Radial Nerve Capillary Refill: < 3 Seconds - Problems (1) Status post reverse total shoulder replacement Qualifiers: Laterality: left Qualifier Code: (Z96.612) Presence of left artificial shoulder joint Status: Acute - Disposition POD#2 s/p left RSA and biceps tenodesis NWB on the LUE. Sling at all times. Pt to work with PT and OT today. Lovenox 40mg sq q day for 2 weeks after surgery then ASA Oxycodone and morphine for pain control. Chest CTA today per Hospitalist, r/o PE or pneumonia --mental status changes, hypertensive, tachycardic, low grade temp
[2016-08-31] MEDS ORDERED: ALBUTEROL NEB 2.5 MG/3 ML VIAL.NEB NEB PRN (19:33)
[2016-08-31 19:43] LABS: ABSOLUTE NEUTROPHIL COUNT 8.2 K/mm3 (1.8-7.7); BASO % 0.2 % (0.2-1.0); EOS # 0.1 (0.0-0.5); HEMATOCRIT 37.9 % (37.0-47.0); HEMOGLOBIN 12.1 gm/l (12.0-16.0); IMM NEUT% 0.4 % (0-1); LYMPH # 1.2 (1.0-4.8); LYMPH % 11.9 % (15-45); MEAN CELL VOLUME 96.7 fl (81.0-99.0); MEAN CORPUSCULAR HEMOGLOBIN 30.9 pg (27.0-31.0); MEAN CORPUSCULAR HGB CONC 31.9 g/dl (33.0-37.0); MEAN PLATELET VOLUME 9.6 fl (7.4-10.4); MONO # 0.5 (0.0-0.8); MONO % 4.7 % (4-12); NEUT % 81.8 % (43-75); PLATELET COUNT 181 K/mm3 (130-400); RED CELL DISTRIBUTION WIDTH 14.6 % (11.5-14.5)
[2016-08-31 20:04] LABS: ALB/GLOB RATIO 0.6 (>1.0); CALCIUM 8.6 mg/dL (8.6-10.3)
[2016-08-31 20:10] LABS: TROPONIN I < 0.01 ng/ml (0.0-0.06)
[2016-08-31 20:14] LABS: CKMB ISOENZYME 7.6 ng/ml (0.6-6.3)
[2016-08-31] MEDS ORDERED: CEFTRIAXONE 1 GRAM DUPLEX 50 ML IV ONE (21:08)
[2016-08-31] MEDS ORDERED: PUMP TUBING ONE (21:09)
[2016-08-31] MEDS: QUETIAPINE FUMARATE 25 MG TABLET PO ONE (21:17)
[2016-08-31] MEDS: CEFTRIAXONE 1 GRAM DUPLEX 1 G in Premix (D5W) 50 ml 1 EACH IV SCH (21:17)
[2016-08-31] MEDS: INSULIN GLARGINE (DOSE) 100 UNITS/ML UNIT SUB-Q SCH (21:18)
[2016-08-31] MEDS: NORTRIPTYLINE HCL 10 MG CAPSULE PO SCH (21:30)
[2016-09-01] MEDS: HYDROMORPHONE HCL 1 MG/ML SYRINGE IV PRN ×3 (01:41→08:58)
[2016-09-01] MEDS: ACETAMINOPHEN 500 MG TABLET PO PRN ×4 (04:34→15:57)
[2016-09-01] MEDS: TRAMADOL HCL 50 MG TABLET PO PRN (04:34)
[2016-09-01] MEDS: KETOROLAC TROMETHAMINE 15 MG/ML VIAL IV PRN ×3 (04:34→22:35)
--- NOTE | 2016-09-01 06:56 | PDOC43 ---
- Subjective Subjective: Denies Pain Tolerable (Pt continues to be confused and uncooperative ), Denies Chest Pain, Denies Shortness of Breath, Denies Nausea, Denies Vomiting , Denies Fever - Objective Vital Signs Temperature 97.5 F 09/01/16 03:50 Pulse Rate 110 09/01/16 03:50 Respiratory Rate 20 09/01/16 03:50 Blood Pressure 147/84 09/01/16 03:50 O2 Saturation by Pulse Oximetry 99 09/01/16 03:50 Oxygen Delivery Method Nasal Cannula Oxygen Flow Rate 2 Laboratory 08/31/16 19:30 08/31/16 19:30 08/31/16 08/31/16 08/31/16 21:36 19:30 17:30 RBC 3.92 L MCHC 31.9 L RDW 14.6 H BUN 6 L Estimated GFR 82 H POC Capillary Glucose 147 H 149 H CK-MB (CK-2) 7.6 H B-Natriuretic Peptide 570 H Albumin 3.0 L Globulin 4.7 H Albumin/Globulin Ratio 0.6 L 08/31/16 08/31/16 10:58 07:42 RBC MCHC RDW BUN Estimated GFR POC Capillary Glucose 179 H 162 H CK-MB (CK-2) B-Natriuretic Peptide Albumin Globulin Albumin/Globulin Ratio Active Medication Orders Category Date Time Status Acetaminophen [Tylenol] Med 08/29/16 20:54 Active 500 - 1,000 mg PO Q6H PRN Albuterol Sulf Neb 2.5mg/3ml [Ventolin Inhalation Med 08/31/16 19:33 Active Solution (Dose)] 2.5 mg NEB Q4H PRN Amlodipine Besylate [Norvasc] Med 08/30/16 17:00 Active 5 mg PO 1700 Aspirin (Enteric Coated) [Ecotrin] Med 08/30/16 09:00 Active 325 mg PO DAILY Ceftriaxone 1 Gram Duplex [Rocephin 1 Gram Premix] 1 g Med 08/31/16 21:30 Active Premix (D5W) 50 ml 1 each IV Q24H Docusate Sodium [Colace] Med 08/29/16 21:00 Active 100 mg PO BID Enoxaparin Sodium [Lovenox] Med 08/30/16 17:26 Active 40 mg SUB-Q Q24H Glipizide [Glucotrol] Med 08/31/16 17:00 Active 10 mg PO DAILY@1700 Hydromorphone HCl [Dilaudid] Med 08/31/16 17:00 Active 1 mg IV Q2H PRN Ibuprofen [Advil] Med 08/31/16 10:46 Active 400 mg PO QID PRN Insulin Aspart (Dose) [Novolog (Dose)] Med 08/29/16 23:24 Active See Protocol SUB-Q WM/BEDTIME PRN Insulin Glargine (Dose) [Lantus (Dose)] Med 08/30/16 19:00 Active 10 units SUB-Q 1900 Ketorolac Tromethamine [Toradol] Med 08/31/16 12:07 Active 15 mg IV Q6H PRN Levothyroxine Sodium [Levothroid] Med 08/30/16 07:30 Active 25 mcg PO QAMAC Lisinopril [Prinivil] Med 08/30/16 17:00 Active 20 mg PO 1700 Metoprolol Succinate (Xl) [Toprol Xl] Med 08/30/16 17:00 Active 50 mg PO 1700 Nortriptyline HCl [Pamelor] Med 08/30/16 20:00 Active 20 mg PO 2000 Oxycodone HCl/Acetaminophen [Percocet 5/325] Med 08/29/16 20:54 Active 1 - 2 tab PO Q4H PRN Pantoprazole Sodium [Protonix] Med 08/31/16 09:00 Active 40 mg PO DAILY Potassium Chloride [K-Dur] Med 08/31/16 11:00 Active 10 meq PO BID Sodium Chlor 0.45%/KCl 20 Meq 1,000 ml Med 08/31/16 12:06 Active IV 100 mls/hr Sodium Chloride 0.9% Flush [Normal Saline 10ml Flush] Med 08/29/16 20:54 Active 10 - 50 ml IV PRN PRN Sodium Chloride 0.9% Flush [Normal Saline 10ml Flush] Med 08/30/16 01:00 Active 10 ml IV Q8HR Tramadol HCl [Ultram] Med 08/31/16 10:43 Active 50 - 100 mg PO Q4H PRN Intake and Output 08/30/16 08/31/16 09/01/16 23:59 23:59 23:59 Intake Total 0766 2989 443 Output Total 0526 3550 325 Balance 4258 -2131 118 General: Afebrile - Left Upper Extremity Incision: Dressing Clean/Dry/Intact, Ecchymosis, Well Approximated Motor: Extensor Pollicis Longus: 4/5, Finger Flexors: 4/5, Finger Extensors: 4/5 , Wrist Flexors: 4/5, Wrist Extensors: 4/5, Intrinsics: 4/5 Gross Sensation to Light Touch: Present: Median Nerve, Ulnar Nerve, Radial Nerve Capillary Refill: < 3 Seconds - Problems (1) Status post reverse total shoulder replacement Qualifiers: Laterality: left Qualifier Code: (Z96.612) Presence of left artificial shoulder joint Status: Acute - Disposition POD#3 s/p left RSA and biceps tenodesis NWB on the LUE. Sling at all times. Pt to work with PT and OT today. Pt has been confused. Most likely due to narcotics. Would recommend minimal narcoics at this point. Dressing changed today and incision C/D/I Lovenox 40mg sq q day for 2 weeks after surgery then ASA CTA negative for PE
[2016-09-01] MEDS: LEVOTHYROXINE SODIUM 25 MCG TABLET PO SCH (07:45)
[2016-09-01] MEDS ORDERED: QUETIAPINE FUMARATE 25 MG TABLET ONE (08:36)
[2016-09-01] MEDS: QUETIAPINE FUMARATE 25 MG TABLET PO ONE (08:40)
[2016-09-01] MEDS ORDERED: QUETIAPINE FUMARATE 25 MG TABLET PO ONE (08:40)
[2016-09-01] MEDS: HALOPERIDOL LACTATE 5 MG/1 ML AMP IV ONE ×2 (08:45→09:15)
[2016-09-01] MEDS ORDERED: HALOPERIDOL LACTATE 5 MG/1 ML AMP ONE (08:45)
[2016-09-01] MEDS: OXYCODONE/ACETAMINOPHEN 5/325 MG TABLET PO PRN (08:59)
[2016-09-01] MEDS: ASPIRIN (ENTERIC COATED) 325 MG TABLET.EC PO SCH (09:20)
[2016-09-01] MEDS: PANTOPRAZOLE 40 MG TABLET DR PO SCH (09:20)
[2016-09-01] MEDS: DOCUSATE SODIUM 100 MG CAPSULE PO SCH ×2 (09:20→21:23)
[2016-09-01] MEDS: POTASSIUM CHLORIDE 10 MEQ TAB.SR PO SCH (09:20)
[2016-09-01] MEDS ORDERED: LORAZEPAM 2 MG/ML 1ML SDV IV ONE (09:48)
[2016-09-01] MEDS ORDERED: HYDROCODONE/ACETAMINOPHEN 5/325MG TABLET PO PRN (10:20)
[2016-09-01] MEDS ORDERED: HALOPERIDOL LACTATE 5 MG/1 ML AMP IV PRN (10:21)
--- NOTE | 2016-09-01 10:56 | PDOC43 ---
- Subjective Chief Complaint: S/P L RSA, post-op delerium Marked delerium now x 24+ hrs. Some response to seroquel last noc. Too agitated to take po meds- used IV dilaudid last noc for pain with marginal effect. Required IV haldol/ativan this AM. - Objective Vital Signs Temperature 97.7 F 09/01/16 07:24 Pulse Rate 87 09/01/16 07:24 Respiratory Rate 20 09/01/16 07:46 Blood Pressure 131/73 09/01/16 07:24 O2 Saturation by Pulse Oximetry 94 09/01/16 07:24 Oxygen Delivery Method Nasal Cannula Oxygen Flow Rate 2.5 Intake and Output 08/31/16 09/01/16 09/02/16 06:59 06:59 06:59 Intake Total 3532 443 Output Total 3200 1725 Balance 332 -1282 General: Other (Agitated/disoriented earlier this AM- calling out "Oh God". Now sedated and NAD.) Lungs: Clear to Auscultation Bilaterally Cardiovascular: Regular Rate and Rhythm Abdomen: Soft, Normal Bowel Sounds, Non-Distended, No Tenderness Extremities: Other (Surgical dressings C/D/I.), No Edema Laboratory 08/31/16 19:30 08/31/16 19:30 08/31/16 19:30 AST 22 ALT 15 Alkaline Phosphatase 59 CK-MB (CK-2) 7.6 H Troponin I < 0.01 Current Medications: Current meds reviewed in EMR. - Problems: Assessment/Plan (1) Status post reverse total shoulder replacement Qualifiers: Laterality: left Qualifier Code: (Z96.612) Presence of left artificial shoulder joint Status: AcuteAssessment/Plan: POD #3. Onset of post-op delirium early AM 08/31/16. Post-op as per ortho. DVT proph with lovenox x 2 weeks then ASA. (2) Toxic metabolic encephalopathy Status: AcuteAssessment/Plan: Post-op delirium/encephalopathy onset early AM 08/31/16. Presumed multifactoral- pain, narcotics, post-op, etc. Timing associated with dilaudid, ultram and pamelor. Will d/c these and attempt to control pain with po norco, IV torodol, etc. Trial scheduled seroquel if able to take po. Haldol/Ativan IV as last resort. Negative work-up on 08/31 including negative chest CTA, cardiac work-up, etc. Borderline UA so began rocephin to cover for possibility of UTI- cx still pending. (3) Hypoxia Status: AcuteAssessment/Plan: Mild and associated with sedation. Suspect undx'ed MACIEJ as well as atalectesis as noted on CTA. No s/sx of infection at this point, but if febrile or not improving consider aspiration pneumonitis. Try to minimize sedatives/narcotics as above. (4) H/O deep venous thrombosis Status: ChronicAssessment/Plan: No PE on CTA Single episode several years ago with negative recent hypercoagulable w/u. Off coumadin x several weeks. DVT proph with Lovenox/ASA as above. (5) DM2 (diabetes mellitus, type 2) Qualifiers: Diabetes mellitus complication status: with unspecified complications Diabetes mellitus joint terminal attack controller insulin use: with joint terminal attack controller use Qualifier Code: (E11.8) Type 2 diabetes mellitus with unspecified complications Status: ChronicAssessment/Plan: Stable. Con't basal/bolus and resume usual regimen upon d/c. (6) HTN (hypertension) Qualifiers: Hypertension type: essential hypertension Qualifier Code: (I10) Essential (primary) hypertension Status: ChronicAssessment/Plan: Stable. Parameters written for usual meds. (7) Asthma Qualifiers: Asthma severity: unspecified severity Status: ChronicAssessment/Plan: Stable at baseline. (8) GERD (gastroesophageal reflux disease) Qualifiers: Esophagitis presence: esophagitis presence not specified Qualifier Code : (K21.9) Gastro-esophageal reflux disease without esophagitis Status: ChronicAssessment/Plan: Substitute protonix for usual omeprazole. (9) Hypothyroidism Qualifiers: Hypothyroidism type: unspecified Qualifier Code: (E03.9) Hypothyroidism , unspecified Status: ChronicAssessment/Plan: Con't usual meds. (10) Morbid obesity with BMI of 45.0-49.9, adult Status: ChronicAssessment/Plan: Complicating all other dx/tx. VTE Prophylaxis: Lovenox x 2 weeks then ASA. Disposition: Home when delirium clears.
[2016-09-01] MEDS ORDERED: BISACODYL 10 MG SUP ONE (13:05)
[2016-09-01] MEDS ORDERED: BISACODYL 10 MG SUP PR ONE (13:14)
[2016-09-01] MEDS ORDERED: ACETAMINOPHEN 160 MG/5 ML PO PRN ×2 (13:53→14:16)
[2016-09-01] MEDS: LORAZEPAM 2 MG/ML 1ML SDV IV PRN ×2 (14:41→17:32)
[2016-09-01] MEDS ORDERED: HALOPERIDOL LACTATE 5 MG/1 ML AMP IV ONE (15:44)
[2016-09-01] MEDS: ENOXAPARIN SODIUM 40 MG/0.4 ML SYRINGE SUB-Q SCH ×2 (15:57→17:39)
[2016-09-01] MEDS ORDERED: IV START KIT ONE (16:02)
[2016-09-01] MEDS ORDERED: SODIUM CHLORIDE 0.9% FLUSH 10 ML ONE (16:02)
[2016-09-01] MEDS: LISINOPRIL 20 MG TABLET PO SCH (17:34)
[2016-09-01] MEDS: AMLODIPINE BESYLATE 5 MG TABLET PO SCH (17:34)
[2016-09-01] MEDS: METOPROLOL SUCCINATE (XL) 50 MG TAB.PRT.SR PO SCH (17:35)
[2016-09-01] MEDS: GLIPIZIDE 10 MG TABLET PO SCH (17:57)
[2016-09-01] MEDS: SODIUM CHLOR 0.45%/KCL 20 MEQ 1,000 ML IV SCH ×2 (18:02→18:50)
[2016-09-01] MEDS: INSULIN GLARGINE (DOSE) 100 UNITS/ML UNIT SUB-Q SCH (19:46)
[2016-09-01] MEDS ORDERED: LORAZEPAM 2 MG/ML 1ML SDV IV PRN (20:17)
[2016-09-01] MEDS: CEFTRIAXONE 1 GRAM DUPLEX 1 G in Premix (D5W) 50 ml 1 EACH IV SCH (21:22)
[2016-09-01] MEDS: QUETIAPINE FUMARATE 25 MG TABLET PO SCH (21:23)
[2016-09-02] MEDS ORDERED: LORAZEPAM 2 MG/ML 1ML SDV IV ONE (04:17)
[2016-09-02] MEDS ORDERED: KETOROLAC TROMETHAMINE 15 MG/ML VIAL IV ONE (04:17)
[2016-09-02] MEDS: SODIUM CHLOR 0.45%/KCL 20 MEQ 1,000 ML IV SCH ×2 (04:29→14:27)
[2016-09-02] MEDS ORDERED: PANTOPRAZOLE SODIUM 40 MG VIAL IV SCH (05:15)
[2016-09-02 06:32] LABS: HEMOGLOBIN 10.4 gm/l (12.0-16.0); MEAN CELL VOLUME 96.4 fl (81.0-99.0); MEAN CORPUSCULAR HEMOGLOBIN 31.3 pg (27.0-31.0); MEAN CORPUSCULAR HGB CONC 32.5 g/dl (33.0-37.0); RED CELL DISTRIBUTION WIDTH 14.8 % (11.5-14.5)
[2016-09-02 07:00] LABS: CALCIUM 8.4 mg/dL (8.6-10.3)
[2016-09-02] MEDS: ACETAMINOPHEN 500 MG TABLET PO PRN (08:11)
[2016-09-02] MEDS: LEVOTHYROXINE SODIUM 25 MCG TABLET PO SCH (08:12)
[2016-09-02] MEDS: QUETIAPINE FUMARATE 25 MG TABLET PO SCH (09:03)
[2016-09-02] MEDS: ASPIRIN (ENTERIC COATED) 325 MG TABLET.EC PO SCH (09:03)
[2016-09-02] MEDS: DOCUSATE SODIUM 100 MG CAPSULE PO SCH (09:03)
--- NOTE | 2016-09-02 10:21 | PDOC43 ---
- Subjective Findings: Slightly improved mentation this morning, single syllable responses to some questions, follows simple commands. - Objective Vital Signs Temperature 97.6 F 09/02/16 07:46 Pulse Rate 131 09/02/16 07:46 Respiratory Rate 19 09/02/16 08:00 Blood Pressure 135/73 09/02/16 07:46 O2 Saturation by Pulse Oximetry 98 09/02/16 07:46 Oxygen Delivery Method Nasal Cannula Oxygen Flow Rate 2 Laboratory 09/02/16 05:10 09/02/16 05:10 09/02/16 09/01/16 09/01/16 05:10 23:32 17:25 RBC 3.32 L MCH 31.3 H MCHC 32.5 L RDW 14.8 H Estimated GFR 98 H POC Capillary Glucose 143 H 187 H Calcium 8.4 L Active Medication Orders Category Date Time Status Acetaminophen [Tylenol] Med 08/29/16 20:54 Active 500 - 1,000 mg PO Q6H PRN Acetaminophen [Tylenol] Med 09/01/16 14:16 Active 500 - 1,000 mg PO Q6H PRN Albuterol Sulf Neb 2.5mg/3ml [Ventolin Inhalation Med 08/31/16 19:33 Active Solution (Dose)] 2.5 mg NEB Q4H PRN Amlodipine Besylate [Norvasc] Med 08/30/16 17:00 Active 5 mg PO 1700 Aspirin (Enteric Coated) [Ecotrin] Med 08/30/16 09:00 Active 325 mg PO DAILY Ceftriaxone 1 Gram Duplex [Rocephin 1 Gram Premix] 1 g Med 08/31/16 21:30 Active Premix (D5W) 50 ml 1 each IV Q24H Docusate Sodium [Colace] Med 08/29/16 21:00 Active 100 mg PO BID Enoxaparin Sodium [Lovenox] Med 08/30/16 17:26 Active 40 mg SUB-Q Q24H Glipizide [Glucotrol] Med 08/31/16 17:00 Active 10 mg PO DAILY@1700 Hydrocodone Bit/Acetaminophen [[place] 5/325] Med 09/01/16 10:20 Active 1 - 2 tab PO Q4H PRN Insulin Aspart (Dose) [Novolog (Dose)] Med 08/29/16 23:24 Active See Protocol SUB-Q WM/BEDTIME PRN Insulin Glargine (Dose) [Lantus (Dose)] Med 08/30/16 19:00 Active 10 units SUB-Q 1900 Ketorolac Tromethamine [Toradol] Med 09/02/16 12:00 Active 15 mg IV Q6H PRN Levothyroxine Sodium [Levothroid] Med 08/30/16 07:30 Active 25 mcg PO QAMAC Lisinopril [Prinivil] Med 08/30/16 17:00 Active 20 mg PO 1700 Lorazepam [Ativan] Med 09/01/16 20:17 Active 0.5 mg IV Q6H PRN Metoprolol Succinate (Xl) [Toprol Xl] Med 08/30/16 17:00 Active 50 mg PO 1700 Nortriptyline HCl [Pamelor] Med 08/30/16 20:00 Hold 20 mg PO 2000 Pantoprazole Sodium [Protonix] Med 09/02/16 05:15 Active 40 mg IV QAMAC Quetiapine Fumarate [Seroquel] Med 09/01/16 21:00 Active 25 mg PO BID Sodium Chlor 0.45%/KCl 20 Meq 1,000 ml Med 08/31/16 12:06 Active IV 100 mls/hr Sodium Chloride 0.9% Flush [Normal Saline 10ml Flush] Med 08/29/16 20:54 Active 10 - 50 ml IV PRN PRN Sodium Chloride 0.9% Flush [Normal Saline 10ml Flush] Med 08/30/16 01:00 Active 10 ml IV Q8HR Intake and Output 08/31/16 09/01/16 09/02/16 23:59 23:59 23:59 Intake Total 5329 794 1255 Output Total 3700 399 1957 Balance -2131 44 671 General: No Acute Distress Abdomen: Soft Skin: Normal Color - Left Upper Extremity Incision: Dressing Clean/Dry/Intact, Well Approximated, [place] Intact, No Drainage, No Erythema, No Rash Motor: Finger Flexors: 5/5, Finger Extensors: 5/5, Wrist Flexors: 5/5, Intrinsics: 5/5 Gross Sensation to Light Touch: Present: Median Nerve, Ulnar Nerve, Radial Nerve Capillary Refill: < 3 Seconds - Problems (1) Status post reverse total shoulder replacement Qualifiers: Laterality: left Qualifier Code: (Z96.612) Presence of left artificial shoulder joint Status: Acute - Disposition POD#4 s/p left RSA and biceps tenodesis 1. Physical Therapy: NWB RUE, sling at all times. PT/OT per RSA protocol. 2. Pain Control: Limit narcotics due to patient delirium. 3. DVT Prophylaxis: Lovenox 40mg sq daily, mechanical + ambulation as tolerated. Will transition to ASA at 2 weeks postop. 4. Disposition: SNF pending, but patient received Haldol last night so minimum 48 hrs add'l stay. 5. Medical Issues: Hospitalist consulting, appreciate assistance. Fortunato Blackmon MD
[2016-09-02] MEDS ORDERED: KETOROLAC TROMETHAMINE 15 MG/ML VIAL IV PRN (12:00)
[2016-09-02 12:04] VITALS: BP 135/87
[2016-09-02] MEDS ORDERED: POTASSIUM CHLORIDE 20 MEQ TAB.PRT.SR PO ONE (14:21)
[2016-09-02] MEDS: ENOXAPARIN SODIUM 40 MG/0.4 ML SYRINGE SUB-Q SCH (14:56)
--- NOTE | 2016-09-03 15:06 | DS ---
LEXI BRO [id number] DATE OF ADMISSION: 08/29/2016 DATE OF DISCHARGE: 09/02/2016 DISCHARGE DIAGNOSIS: Status post reversed left total shoulder replacement. Procedure was performed on 08/29/2016. OTHER DIAGNOSES: Include: 1. Acute metabolic encephalopathy associated with pain, narcotics, and anesthesia occurring in the postoperative period. 2. Acute respiratory failure associated with 2 mg of Dilaudid causing hypoxia improved with monitoring and oxygen supplementation. 3. Postoperative atelectasis. 4. Adult-onset diabetes mellitus on insulin stable. 5. Chronic essential hypertension, stable. 6. Chronic asthma, stable. 7. Gastroesophageal reflux disease, stable. 8. Hypothyroidism, stable. 9. Morbid obesity with a body mass index greater than 45 also stable. 10. Asymptomatic bacteruria culture pending. SUMMARY OF ADMISSION AND HOSPITAL COURSE: The patient is a 76-year-old female admitted for an elected left shoulder arthroplasty. The procedure itself was uncomplicated, but her postoperative course was complicated by an acute delirium felt to be multifactorial. Patient had challenges with pain management. On postoperative day number one received a 2 mg dose of Dilaudid and had acute hypoxic respiratory failure as a result of the medication, improved with time and oxygen supplementation. She underwent a CTA of the chest on 08/31/2016 showing low lung volumes and atelectasis, but no evidence of pulmonary embolism. On 09/01/2016, she had some persistent confusion, and some agitation and received Haldol along with other sedatives which improved her symptoms. By 09/02/2016, her symptoms had stabilized. She was alert, and oriented x3. Her pain was controlled with tramadol and ibuprofen along with Tylenol. Family and the patient both expressed strong interest in discharging home. It was felt the patient would likely do better in her home environment, and patient at the time of her discharge has a urine culture pending. Currently, it is growing some gram-positive cocci over 100,000 colony forming units. She did have a urinalysis showing evidence of hospital acquired bacteriuria. No white cells in her urine. Nitrate was negative. Leukocyte esterase showed 1+, and she is being treated with antibiotic for presumptive asymptomatic bacteruria. At this time, organism is unknown. The patient did work with physical therapy and did meet criteria for discharge, and therefore was discharged home on the evening of 09/02/2016 with her family planning on being with her at all times. PHYSICAL EXAM: VITAL SIGNS: Her discharge vital showed a temperature of 97.6, pulse is elevated at around 130 thought to be due to anxiety, blood pressure was 135/87, respirations 19, oxygen saturation is 98% on room air. Body mass index is 46.4. Weight is 107 kg. GENERAL: This is an anxious elderly female in no acute distress. HEENT: Unremarkable. LUNGS: Show diminished breath sounds in the bases, otherwise clear to auscultation bilaterally. CARDIOVASCULAR: Exam reveals a regular tachycardia without a murmur. EXTREMITIES: Show no peripheral edema. She has her left shoulder in an immobilizer at this time. Her dressing is clean and dry. LABORATORY STUDIES: Her laboratory studies on the day of discharge included a metabolic panel showing a sodium of 137, potassium 3.4, and creatinine of 0.6. CBC showed a white count of 7.9, hemoglobin of 10.4, and a platelet count of 196,000. DISPOSITION: Home. ALLERGIES: DOCUMENTED TO PENICILLIN, LATEX, DOXYCYCLINE, GLIMEPIRIDE, METFORMIN, SULFA, TRAMADOL. INSTRUCTIONS: She has urine culture pending, and will follow up with her primary care provider, Dr. Juan Wilson as needed. The patient was given extensive postoperative instructions regarding activity and activity restrictions by Dr. Jones. See his postoperative handout. DISCHARGE MEDICATIONS: Include: 1. Macrodantin in the form of Macrobid 100 mg twice daily for 5 days. 2. Extra Strength Tylenol 500 to 1000 mg every 6 hours as needed for mild pain. 3. Colace 100 mg twice daily for constipation prevention. 4. Lovenox 40 mg subcutaneous every 24 hours for 14 days. 5. [place] 1 tablet every 4 hours as needed for severe pain. 6. Advil 400 to 600 mg every 6 hours as needed for mild pain. 7. Tramadol 50 to 100 mg every 4 hours as needed for moderate pain. 8. Norvasc 5 mg every day at 5 p.m. 9. Vitamin D3 at 5000 units by mouth daily. 10. Co-Enzyme Q10 at 100 mg daily. 11. Neurontin 900 mg 3 times daily. 12. Glipizide 10 mg daily at 5 p.m. 13. Lantus 10 units subcutaneous every day at 7 p.m. 14. Levothroid 25 mcg every morning. 15. Lisinopril 20 mg every day at 5 p.m. 16. Toprol XL 50 mg every day at 5 p.m. 17. Pamelor 20 mg at bedtime. 18. Ditropan XL 5 mg daily. 19. Prilosec 20 mg every evening. DISCHARGE FOLLOW UP: She has follow up arranges with Dr. Jones on 09/06/2016 at 8:30 a.m. DISCHARGE CONDITION: Good. CESILIA/shagufta Cc: Dr. Robert Wilson
--- NOTE | 2016-09-04 12:06 | HP ---
DATE OF CLINIC: 08/25/2016 LEXI ECHOLS : 1940 PLANNED PROCEDURE: Left Total Shoulder Arthroplasty vs. Reverse Shoulder Arthroplasty and Biceps Tenodesis DATE OF SURGERY: August 29, 2016 SURGEON: Camron Jones M.D. HISTORY OF PRESENT ILLNESS Lexi Echols is a 76 year old female. * Medication list reviewed with patient allergy list reviewed with patient. * Tried NSAIDS * Tried Injections * Has not tried Physical Therapy The patient is a 76-year-old Left-hand dominant female who is an established patient of Dr. Lee who I have been seen regarding her bilateral shoulder problems. The patient has left shoulder osteoarthritis and is here to discuss moving forward with a left shoulder replacement. I asked her to have a CT arthrogram to better evaluate the rotator cuff and glenoid morphology. The patient is here with her daughter. The patient is a left-hand dominant at this point in time, because of her poor function on her left she is interested in potentially pursuing surgery. In the past the patient has had a hx of PE. After evaluation of her hx by her PCP, Dr. Wilson, it was felt that she may not have had a PE but instead an elevated von willebrand's factor. For this reason, the patient was taken off coumadin by her PCP and is now just on a daily aspirin. The recommendation post-op is for regular prophylaxis dose of Lovenox post-op. The patient does have diabetes and is insulin-dependent. The patient is also a Buddhism and at the last appointment may clear to me that would prefer not to have blood products, but would be open to having a cell saver in surgery. I reviewed with her the recommendations from her PCP about using Lovenox (prophylaxis-based treatment dosing) According to Dr. Lee's notes the patient had a right shoulder replacement in September of [address] Morris in [place]. After discussion and review of treatment options, both non-operative and surgical, she has elected to proceed with surgery and presents today preoperatively. Her past medical history is significant for having a right total replacement close to 10 years ago which has had persistent anterior shoulder instability. She has been living with a dislocated right anatomic total shoulder for the past 10 years and most likely will need a revision to a RSA at some point in time. PMH: The patient is a Buddhism CURRENT MEDICATION * AmLODIPine Besylate 5 MG Tablet once a day Dr. Luciano, 0 days, 0 refills * BD Pen Mini Miscellaneous as directed 0 days, 0 refills * [facility] Vitamin D3 1000 UNIT Tablet Chewable as directed 0 days, 0 refills * GlipiZIDE 10 MG Tablet 1 once a day 0 days, 0 refills * Ipratropium Avalon Powder 0 days, 0 refills * Lantus 100 UNIT/ML Solution as directed 0 days, 0 refills * Levothyroxine Sodium 25 MCG Tablet 1 once a day 0 days, 0 refills * Lexapro 10 MG Tablet as directed 0 days, 0 refills * Lisinopril 20 MG Tablet once a day Dr. Luciano, 0 days, 0 refills * Metoprolol Tartrate 50 MG TABS, [address] Luciano, 0 days, 0 refills * Neurontin 300 MG Capsule as directed 0 days, 0 refills * Pamelor 10 MG Capsule as directed 0 days, 0 refills * PriLOSEC 20 MG Capsule Delayed Release 1 once a day 0 days, 0 refills * ProAir HFA 108 (90 Base) MCG/ACT Aerosol Solution 0 days, 0 refills * Symbicort 160-4.5 MCG/ACT Aerosol as directed 0 days, 0 refills * Ventolin HFA 108 (90 Base) MCG/ACT Aerosol Solution as directed 0 days, 0 refills * Warfarin Sodium 5 MG Tablet once a day Dr. Luciano, 0 days, 0 refills PAST MEDICAL/SURGICAL HISTORY Reported: Medical: Stomach problems ulcers, Reported numbness, Reported tingling, Diabetes Mellitus, history of Arthritis, Hypertension, Venous thrombosis, and Asthma. Surgical / Procedural: Prior surgery nerve damage-left foot, 2 surgeries 1999, replacement of a shoulder joint Right shoulder replacement 09/2008, of a knee Right, Cholecystectomy 1989, Hysterectomy 1991, and Carpal Tunnel Surgery bilateral. SOCIAL HISTORY Work: Occupation retired. No assistance to date with injections, NSAIDS and time. ALLERGIES * Latex * Penicillin * Sulfa Drugs Reaction: Skin Rashes/Hives FAMILY HISTORY 2 children living REVIEW OF SYSTEMS Systemic: No fever and no recent weight change. Cardiovascular: No chest pain or discomfort and no palpitations. Pulmonary: No cough and no wheezing. Gastrointestinal: No nausea, no vomiting, no abdominal pain, and no diarrhea. Hematologic: No easy bleeding (no blood clots). Neurological: No motor disturbances and no sensory disturbances. Skin: No skin lesions and no rash. PHYSICAL FINDINGS * Vitals taken 08/25/2016 09:45 am BP-Sitting R 118/75 mmHg 100 - 120/56 - 80 BP Cuff Size Regular Pulse Rate-Sitting 82 bpm 50 - 100 Pulse Rhythm Regular Temp-Oral 98.4 F 96 - 101 Height 60.25 in 59 - 68 Weight 240 lbs 95 - 175 Body Mass Index 46.5 kg/m2 Body Surface Area 2.02 m2 Pain Level 9 General Appearance: Well developed (overweight). * In no acute distress. Eyes: General/bilateral: Extraocular Movements: * Normal. Lungs: * Clear to auscultation. * No wheezing was heard. * No rales/crackles were heard. Cardiovascular: Heart Rate and Rhythm: * Heart rate was normal. * Heart rhythm regular. Abdomen: Palpation: * Abdominal non-tender. Neurological: * Oriented to time, place, and person. Motor: * Dominant Hand = Left Hand. I examined the patient's right and left shoulders. She has limited function on the right side most likely due to this unstable right total shoulder arthroplasty, however the left is more painful. Since this is more of her dominant side. PHYSICAL FINDINGS RIGHT EXTREMITY Shoulder General Appearance: right shoulder deltopectoral incision. Gross abnormality of the right shoulder consistent with an unstable right TSA. AROM Forward Flexion: 40 degrees ABD: 60 degrees IR: Highest posterior anatomy reached with thumb: L4 PROM Forward Flexion: 80 degrees ABD: 80 degrees ER (0): 40 degrees Strength (0-5/5) Deltoid: 5/5 Triceps: 5/5 Biceps: 5/5 EPL,Finger Flexors,Finger Extensors,Wrist Flexors, Wrist Extensors,Intrinsics,Hip Hop Dance Instructor: 5/5 Rotator cuff Supraspinatus: POSITIVE empty can test Infraspinatus: POSITIVE for weakness with resisted external rotation Subscapularis: POSITIVE belly press test Rotator Cuff Exam Superior Escape: POSITIVE Biceps Exam Bicipital Groove Tenderness: Tender to touch Muscle Deformity (Balwinder): Not present Instability Generalized Laxity(thumb to forearm,hyperextension of elbows and knees, hypermobility of multiple joints): Not present, Pt has a grossly dislocated right TSA Vascular Exam Radial Pulse: 2+ Sensation Gross sensation to light touch in the distribution of Median, Ulnar, Axillary, and Radial nerves present PHYSICAL FINDINGS LEFT EXTREMITY C-spine --limited motion due to posterior cervical neck pain. No signs of radiculopathy Shoulder General Appearance: no scars, no bruising, no swelling, no gross deformity AROM Forward Flexion: 80 degrees (crepitus with motion is appreciated) ABD: 80 degrees IR: Highest posterior anatomy reached with thumb: Greater troch PROM Forward Flexion: 80 degrees ABD: 90 degrees ER (0): -20 degrees Strength (0-5/5) Deltoid: 5/5 Triceps: 5/5 Biceps: 5/5 EPL,Finger Flexors,Finger Extensors,Wrist Flexors, Wrist Extensors,Intrinsics,Hip Hop Dance Instructor: 5/5 Rotator cuff Supraspinatus: 5/5 (negative empty can test) Infraspinatus: 5/5 (no pain with resisted external rotation) Subscapularis: 5/5 (negative belly press test) Rotator Cuff Exam Neer's Sign: POSITIVE Hawkin's Sign: POSITIVE Superior Escape: Negative Biceps Exam Bicipital Groove Tenderness: POSITIVE Muscle Deformity (Balwinder): Not present AC Exam AC Tenderness: Not tender AC Deformity: Negative Instability Generalized Laxity(thumb to forearm, hyperextension of elbows and knees, hypermobility of multiple joints): Not present, no signs of instability present Other Medial Scapular Tenderness: Negative Trapezius Pain: Tender to touch Vascular Exam Radial Pulse: 2+ Sensation Gross sensation to light touch in the distribution of Median, Ulnar, Axillary, and Radial nerves present IMAGING 07.03.2016--CXR: No active intra-thoracic disease is present X-rays performed on May 15, 2016 show three views of the patient cervical spine. These x-rays do show some signs of osteoarthritis which is worse at C5-C6 consistent with a degenerative disc disease as well as possible hypertrophic facet arthropathy at C3-C4. The patient's CT arthrogram demonstrates some small amount of dye going underneath the rotator cuff. This is consistent with a possible small tear. I do not actually see where the breach would be located when I got through the coronal or axial images. On the axial images the patient has some biconcavity to the glenoid itself, however, I think that the patient has an appropriate amount of bone stock that I could put a glenoid component or reverse shoulder component without too much difficulty. X-rays obtained on April 17, 2016 were reviewed. Four views of the left shoulder demonstrates severe osteoarthritis of the left shoulder. She has had collapse of the humeral head and actually medialization most likely due to long-standing osteoarthritis, maybe even AVN of her left humeral head. She has endstage osteoarthritis. On her axillary images the patient has a flat humeral head consistent with her history of limited motion on this side. 04.17.2016--Right shoulder x-rays --On the patient's right side we do not have any previous x-rays, however the patient has a grossly unstable right total shoulder arthroplasty. The patient has a PressFit humeral stem, a cemented glenoid. The implant itself is anterior to the socket most likely from a subscapularis and rotator cuff failure. This is perched at the end of most likely has been this way for quite some time. ASSESSMENT Camron Jones MD made the following assessments Osteoarthritis of shoulder -s/p right TSA in 2008 with early failure of the RC and subsequent dislocation * Osteoarthritis of shoulder -left shoulder severe osteoarthritis PLAN Camron Jones MD ordered the following therapy * Shoulder arthroplasty TSA vs. RSA and biceps tenodesis -left THERAPY * Patient fall risk screen positive. * Patient eligible for fall risk assessment. * Patient received fall risk assessment. SURGICAL CONSENT We have discussed surgical options including left total shoulder arthroplasty vs. reverse shoulder arthroplasty with biceps tenodesis and nonoperative management. Because of those findings and failure of conservative nonoperative treatment, after a lengthy discussion of the risks and benefits she/he elected to proceed with the above mentioned surgery. The patient understood that the risks of infection, blood loss, neurovascular injury, anesthetic risk, risk of instability, stiffness and post-operative pain. I showed the patient my shoulder arthroplasty powerpoint presentation where we reviewed the risks and benefits of non-op and surgical treatments. I again reviewed with her some technical details about a total shoulder. I explained that a total shoulder replacement refers to the resurfacing of the ball (humeral) side of the joint with a metal prosthesis that has a cylindrical joint surface and a stem used to fix it on the inside of the arm bone (humerus) and a plastic socket fixed to the glenoid part of the shoulder blade (scapula). This procedure is the standard approach to the management of arthritis of the shoulder joint. Because it resurfaces both the ball and the socket sides of the joint, it provides the most assured approach to restoring comfort and function to the shoulder. We can perform this shoulder surgery by operating through the delto-pectoral interval through an incision in the anterior aspect of the shoulder. Commonly, we performed a tenodesis of the long head of the biceps and a release (and repair) of the subscapularis tendon from the humerus. The long head of the biceps is sutured to the pectoral major tendon, and the subscapularis tendon is repaired back tot he bone at the conclusion of the surgery. After a release of the subscapularis, the capsule, which is usually tight and contracted, limiting motion of the shoulder, is released. The arthritic part of the ball is removed with care to preserve the rotator cuff. The bone spurs are removed from around the humerus to avoid unwanted contact with the scapula. We then shape the bone of the socket area (glenoid) to receive the polyethylene glenoid prosthesis. This is fixed in place with a self-locking mechanism coupled with a small amount of bone cement (polymethylmethacrylate). The stem of the metal humeral component is then press-fit into the canal inside the humerus using the patient's own bone. The subscapularis is then repaired to the humerus using sutures. The [id number] of the shoulder is then evaluated and stability is then examined. The incision is then washed and closed. Pendulum exercises will be taught to the patient the day after surgery. Patients are usually discharged from the hospital on the second day after surgery, as long as they are comfortable on oral pain medication have met our goals for their [id number], and are able to walk with good balance and can care for their daily needs. In the past, there has been a major concern about wear of the glenoid socket component or about its loosening. While these concerns remain to a degree, it appears that our current methods of socket preparation and current prosthesis designs have substantially reduced these risks. Shoulder replacement surgery usually results in a substantial improvement in the comfort and function of an arthritic shoulder, but the results cannot be expected to match the condition of a normal joint. We then reviewed with possibility that I may have to perform a RSA if her rotator cuff is incompetent and I showed her the model and reviewed with her the limitations of this device. The patient was counseled in detail regarding the diagnosis, treatment options available, prognosis of each treatment option and the potential risks and complications. The risks of surgery include, but are not limited to, anesthetic , neurovascular complications, pulmonary embolism, deep vein thrombosis, wound dehiscence, failure of any or all of the discussed procedures, infection of the joint or surrounding soft tissue, need for revision surgery, chronic pain, limitations in activities of daily living, inability to return to work, and loss of normal range of motion or functional use of the extremity. There is the possibility of failure over time that may require additional operative or non-operative treatment. The patient acknowledged that there are a number of perioperative risks not mentioned here and would still like to proceed. The patient is aware of and understands these risks, and wishes to proceed with the proposed surgical procedure and other procedures as indicated at the time of surgery. The patient has seen her PCP for a preoperative medical risk assessment. I told her we will most likely plan to use Lovenox post-op for DVT prophylaxis. The preoperative instructions were reviewed with the patient and all questions were answered. CARE TEAM Juan Wilson, [facility] Amadou Wilkerson M.D. Clinical Cardiac Electrophysiology BLP/sg
== END 2016-09-02 15:25 | disposition home or self-care (01) | DRG 483 ==
LOC: OR 08-29 10:48 → MS 08-29 21:00
PROVIDERS: ADMIT Orthopaedic Surgery; ATTEND Orthopaedic Surgery
PROC: 0RRK0JZ Replacement of Left Shoulder Joint with Synthetic Substitute, Open Approach (ICD-10-PCS; principal; 2016-08-29)
DX: M19.012 Primary osteoarthritis, left shoulder (principal); G93.41 Metabolic encephalopathy; J96.01 Acute respiratory failure with hypoxia; Z68.42 Body mass index [BMI] 45.0-49.9, adult; J95.89 Other postprocedural complications and disorders of respiratory system, not elsewhere classified; J98.11 Atelectasis; E11.9 Type 2 diabetes mellitus without complications; Z79.4 Long term (current) use of insulin; Z86.711 Personal history of pulmonary embolism; I10 Essential (primary) hypertension; J45.909 Unspecified asthma, uncomplicated; M75.102 Unspecified rotator cuff tear or rupture of left shoulder, not specified as traumatic; M75.22 Bicipital tendinitis, left shoulder; K21.9 Gastro-esophageal reflux disease without esophagitis; E03.9 Hypothyroidism, unspecified; E66.01 Morbid (severe) obesity due to excess calories; Y83.9 Surgical procedure, unspecified as the cause of abnormal reaction of the patient, or of later complication, without mention of misadventure at the time of the procedure